=== PATIENT | female | born 1935 | race Caucasian/White ===

== ENCOUNTER → 2016-07-30 | Outpatient (CLI) | payer OTHER ==
[~2016-07-30] MED LIST: ALDACTONE25 MG PO; ASPIRIN BUFFER325 MG PO; CALTRATE 600+D1 EAC1 PO; COZAAR50 MG PO; KLONOPIN0.5 M1 PO; LIPITOR20 MG PO; METFORMIN HCL1000 M3 PO; NEURONTIN600 MG PO; PROTONIX40 MG PO; RECLAST5 MG/100 M IV; REQUIP3 MG PO; STALEVO 125 TA1 EACH PO; SYNTHROID88 MCG PO
== END | disposition home or self-care (01) ==
LOC: AMB 13:00
DX: M79.604 Pain in right leg (principal); M48.06 Spinal stenosis, lumbar region; M48.07 Spinal stenosis, lumbosacral region; M47.816 Spondylosis without myelopathy or radiculopathy, lumbar region
CPT/HCPCS: 62304; 72132